=== PATIENT | female | born 1955 | race Caucasian/White ===

== ENCOUNTER 2025-01-26 15:18 | Emergency (ER) | payer MEDICARE, OTHER ==
[2025-01-26 16:04] LABS: APPEARANCE,URINE CLOUDY (CLEAR); BILIRUBIN,URINE NEGATIVE (NEGATIVE); COLOR,URINE YELLOW (YELLOW); GLUCOSE,URINE NEGATIVE (NEGATIVE); KETONES,URINE TRACE (NEGATIVE); LEUKOCYTE ESTERASE,URINE MODERATE (NEGATIVE); NITRITE,URINE NEGATIVE (NEGATIVE); OCCULT BLOOD,URINE TRACE-INTACT (NEGATIVE); PROTEIN,URINE 100 (NEGATIVE); UROBILINOGEN,URINE 0.2 mg/dL (0.2-1.0)
[2025-01-26 16:11] LABS: AMORPHOUS SEDIMENT,URINE FEW /HPF (NOT SEEN); BACTERIA,URINE FEW /HPF (0-FEW/HPF); EPITHELIAL CELLS,URINE RARE /HPF (NOT SEEN); MUCUS,URINE MODERATE /LPF (NOT SEEN); WBC,URINE >100 /HPF (0-5/HPF)
[2025-01-26] MEDS: Cefuroxime 250 MG Tab PO ONE (16:19)
[2025-01-26] MEDS: FLUCONAZOLE 100 MG PO ONE (16:19)
== END 2025-01-26 16:25 | disposition home or self-care (01) ==
LOC: DL.ED 15:18
DX: N39.0 Urinary tract infection, site not specified (principal)
CPT/HCPCS: 81001; 87086; 87088; 87186; 99283; A9270